=== PATIENT | female | born 1955 ===

== ENCOUNTER → 2023-08-13 | Outpatient (CLI) | payer OTHER | END | disposition home or self-care (01) | LOC: LAB SHORT 15:30 → LAB 15:30 | DX: E83.51 Hypocalcemia (principal) | CPT/HCPCS: 82306; 83970 ==

== ENCOUNTER → 2023-10-15 | Outpatient (CLI) | payer OTHER ==
[2023-10-17 09:13] LABS: CALCIUM, SERUM 9.5 mg/dL (8.7-10.3); CREATININE, SERUM 0.7 mg/dL (0.57-1.00); POTASSIUM, SERUM 4.3 mmol/L (3.5-5.2)
== END ==
LOC: LAB 16:53 → LAB SHORT 16:53
PROVIDERS: Student in an Organized Health Care Education/Training Program
DX: E83.51 Hypocalcemia (principal)
CPT/HCPCS: 80048

== ENCOUNTER → 2025-05-09 | Outpatient (CLI) | payer OTHER | LOC: LAB 16:52 → LAB SHORT 16:52 | DX: N39.0 Urinary tract infection, site not specified (principal); R31.9 Hematuria, unspecified | CPT/HCPCS: 87077; 87086; 87186 ==